=== PATIENT | male | born 1985 | race Caucasian/White ===

== ENCOUNTER 2018-12-15 16:02 | Emergency (ER) | payer SELFPAY ==
[~2018-12-15] VITALS: Ht 172.7 cm; Wt 156.0 kg
[2018-12-15 16:34] VITALS: BP 154/103; PULSE 75; RESP 18; Ht 172.7 cm; Wt 156.0 kg
== END 2018-12-15 18:15 | disposition left against medical advice (07) ==
LOC: E/R 16:02
DX: Z53.21 Procedure and treatment not carried out due to patient leaving prior to being seen by health care provider (principal)